=== PATIENT | female | born 1945 | race Caucasian/White ===

== ENCOUNTER → 2018-02-01 | Outpatient (CLI) | payer MEDICARE, OTHER | LOC: LAB SHORT 09:07 → PLD 09:07 | DX: L72.0 Epidermal cyst (principal) | CPT/HCPCS: 88304 ==

== ENCOUNTER 2018-05-15 20:12 | Emergency (ER) | payer MEDICARE, OTHER ==
[~2018-05-15] VITALS: Ht 167.6 cm; Wt 66.7 kg
[2018-05-15] MEDS ORDERED: LEVSOD50 PO (20:23)
[2018-05-15] MEDS ORDERED: ESTRADIOL1 MG PO (20:23)
[2018-05-15] MEDS ORDERED: SIMV80 PO (20:23)
[2018-05-15] MEDS ORDERED: ZOLP10 PO (20:24)
[2018-05-15] MEDS ORDERED: Pantoprazole So40 MG PO (20:24)
[2018-05-15] MEDS ORDERED: SUMA25 PO (20:24)
[2018-05-15 20:32] LABS: Source, Urine Clean Catch
[2018-05-15 20:37] LABS: Appearance, Urine Cloudy (Clear); Bilirubin, Urine Neg (Neg); Blood, Urine 5+ (Neg); Color, Urine Yellow (P-Yellow); Glucose Qualitative, Urine Neg (Neg); Ketones, Urine Neg (Neg); Leukocyte Esterase, Urine 3+ (Neg); Nitrite, Urine Neg (Neg); Protein, Urine 3+ (Neg); Urobilinogen, Urine NORM (Normal)
[2018-05-15 20:45] LABS: White Blood Cells, Urine 50-100 /hpf (0-5)
[2018-05-15 20:46] LABS: Bacteria Many /hpf; Squamous Epithelial Cells Few /hpf (Few)
[2018-05-15] MEDS ORDERED: CEPH500 PO (21:29)
[2018-05-15] MEDS ORDERED: Pyridium200 MG PO (21:29)
== END 2018-05-15 21:41 | disposition home or self-care (01) ==
LOC: ER 20:12
PROVIDERS: Emergency Medicine
DX: N39.0 Urinary tract infection, site not specified (principal); E03.9 Hypothyroidism, unspecified; E78.5 Hyperlipidemia, unspecified; K21.9 Gastro-esophageal reflux disease without esophagitis; Z88.8 Allergy status to other drugs, medicaments and biological substances; Z79.899 Other long term (current) drug therapy
CPT/HCPCS: 81001; 87077; 87086; 87186; 99284

== ENCOUNTER 2020-09-13 00:28 | Emergency (ER) | payer MEDICARE, OTHER ==
[~2020-09-13] VITALS: Ht 170.2 cm; Wt 68.0 kg
[~2020-09-13 00:28] MED LIST: CEPH500 PO; ESTRADIOL1 MG PO; LEVSOD50 PO; Pantoprazole So40 MG PO; Pyridium200 MG PO; SIMV80 PO; SUMA25 PO; ZOLP10 PO
[2020-09-14] MEDS ORDERED: METF500 PO (04:02)
[2020-09-14] MEDS ORDERED: LIDO700A20 TOP ×2 (05:40→06:02)
== END 2020-09-13 03:52 | disposition home or self-care (01) ==
LOC: ER 00:28
DX: M70.62 Trochanteric bursitis, left hip (principal); E03.9 Hypothyroidism, unspecified; E78.5 Hyperlipidemia, unspecified; E11.9 Type 2 diabetes mellitus without complications; K21.9 Gastro-esophageal reflux disease without esophagitis; Z88.8 Allergy status to other drugs, medicaments and biological substances; Z79.899 Other long term (current) drug therapy
CPT/HCPCS: 20610; 99282-25; A9270; J1030

== ENCOUNTER 2020-09-14 03:15 | Emergency (ER) | payer MEDICARE, OTHER ==
[~2020-09-14] VITALS: Ht 170.2 cm; Wt 68.0 kg
[2020-09-14] MEDS ORDERED: METF500 PO (04:02)
[2020-09-14 04:05] LABS: Calcium, Ionized (POC) 1.18 mmol/L (1.10-1.46); Chloride (POC) 99 mmol/L (98-108); Creatinine (POC) 0.6 mg/dL (0.6-1.0); Glucose (ISTAT POC) 162 mg/dL (70-99); Hemoglobin (POC) 14.6 g/dL (12.0-16.0); Potassium (POC) 4.6 mmol/L (3.5-5.5); Sodium (POC) 133 mmol/L (135-148); Total CO2 (POC) 23 mmol/L (21-32)
[2020-09-14] MEDS ORDERED: LIDO700A20 TOP ×2 (05:40→06:02)
== END 2020-09-14 06:00 | disposition home or self-care (01) ==
LOC: ER 03:15
PROVIDERS: Emergency Medicine
DX: M70.72 Other bursitis of hip, left hip (principal); R42 Dizziness and giddiness; R53.1 Weakness; E03.9 Hypothyroidism, unspecified; E78.5 Hyperlipidemia, unspecified; K21.9 Gastro-esophageal reflux disease without esophagitis; Z88.1 Allergy status to other antibiotic agents; Z79.899 Other long term (current) drug therapy
CPT/HCPCS: 80047; 85014; 96360; 99285-25; J7030

== ENCOUNTER → 2021-03-24 | Outpatient (CLI) | payer MEDICARE, OTHER ==
[~2021-03-24] MED LIST changes: +LIDO700A20 TOP; +METF500 PO
== END ==
LOC: LAB 12:41 → LAB SHORT 12:41
DX: N39.0 Urinary tract infection, site not specified (principal)
CPT/HCPCS: 87077; 87086; 87186

== ENCOUNTER → 2022-06-24 | Outpatient (CLI) | payer MEDICARE, OTHER | END | disposition home or self-care (01) | LOC: LAB SHORT 08:37 → PLD 08:37 | DX: L82.1 Other seborrheic keratosis (principal) | CPT/HCPCS: 88305 ==

== ENCOUNTER 2023-09-08 12:05 | Emergency (ER) | payer MEDICARE, OTHER ==
[~2023-09-08] VITALS: Ht 167.6 cm; Wt 63.5 kg
[~2023-09-08 12:05] MED LIST changes: +BENZ100A PO
[2023-09-08 12:30] VITALS: BP 161/81
[2023-09-08 12:49] LABS: Source, Urine Clean Catch
[2023-09-08 13:06] LABS: Appearance, Urine Turbid (Clear); Bilirubin, Urine Neg (Neg); Blood, Urine 3+ (Neg); Color, Urine Yellow (P-Yellow); Glucose Qualitative, Urine Neg (Neg); Ketones, Urine Neg (Neg); Leukocyte Esterase, Urine 3+ (Neg); Nitrite, Urine Neg (Neg); Protein, Urine 3+ (Neg); Specific Gravity, Urine 1.025 (1.003-1.022); Urobilinogen, Urine NORM (Normal)
[2023-09-08 13:24] LABS: White Blood Cells, Urine 50-100 /hpf (0-5)
[2023-09-08 13:25] LABS: Bacteria Many /hpf; Squamous Epithelial Cells Mod /hpf (Few); Transitional Epithelial Cells Rare /hpf (0-Rare)
[2023-09-08] MEDS ORDERED: Bactrim Ds Tab1 EACH PO (13:53)
== END 2023-09-08 13:57 | disposition home or self-care (01) ==
LOC: ER 12:05
PROVIDERS: Physician Assistant
DX: N30.00 Acute cystitis without hematuria (principal); E11.9 Type 2 diabetes mellitus without complications
CPT/HCPCS: 81001; 87077; 87086; 87186; 99283

== ENCOUNTER → 2024-02-22 | Outpatient (CLI) | payer MEDICARE, OTHER ==
[~2024-02-22] MED LIST changes: +Bactrim Ds Tab1 EACH PO
== END ==
LOC: LAB 12:00 → LAB SHORT 12:00
DX: N39.0 Urinary tract infection, site not specified (principal)
CPT/HCPCS: 87077; 87086; 87186

== ENCOUNTER → 2024-08-07 | Outpatient (CLI) | payer MEDICARE, OTHER ==
[2024-08-09 12:38] LABS: Stool Occult Bld Immuno 1 Negative (NEGATIVE)
== END | disposition home or self-care (01) ==
LOC: LAB 19:15 → LAB SHORT 19:15
PROVIDERS: Family Medicine
DX: R63.4 Abnormal weight loss (principal)
CPT/HCPCS: G0328

== ENCOUNTER → 2025-06-05 | Outpatient (CLI) | payer MEDICARE, OTHER | END | disposition home or self-care (01) | LOC: LAB SHORT 14:51 → LAB 14:51 | DX: N39.0 Urinary tract infection, site not specified (principal); R31.9 Hematuria, unspecified | CPT/HCPCS: 87077; 87086; 87186 ==